=== PATIENT | male | born 1950 | race Caucasian/White ===

== ENCOUNTER 2021-09-14 09:46 | Inpatient (IN) ==
[2021-09-14 11:03] LABS: Basophils % 0.2 %; Hematocrit 34.8 % (37.5-50.1); Immature Granulocytes % 0.5 % (0-4); Lymphocytes # 0.4 K/mcL (0.6-4.6); Lymphocytes % 4.7 %; Mean Corpuscular HGB Conc 31.6 g/dL (31.6-35.5); Mean Corpuscular Volume 85.5 fL (83.0-100.0); Mean Platelet Volume 10.2 fL (9.4-12.4); Monocytes # 0.4 K/mcL (0.0-1.3); Monocytes % 4.5 %; Neutrophils # 7.8 K/mcL (1.6-8.9); Platelet Count 492 K/mcL (140-400); Red Blood Count 4.07 M/mcL (4.19-5.50); Red Cell Distribution Width 15.9 % (11.5-14.5); Segmented Neutrophils % 90.1 %; White Blood Count 8.7 K/mcL (4.3-11.1)
[2021-09-14 11:13] LABS: INR 1.1; Prothrombin Time 12.6 Seconds (9.4-12.1)
[2021-09-14 11:15] LABS: Activated Partial Thrombo Time 31.3 Seconds (26.0-36.0)
[2021-09-14 11:40] LABS: Alanine Aminotransferase 10 Units/L (7-52); Albumin 3.2 g/dL (3.5-5.7); Albumin/Globulin Ratio 0.8 (1.1-2.2); Alkaline Phosphatase 111 Units/L (34-104); Amylase 37 Units/L (29-103); Aspartate Amino Transferase 23 Units/L (13-39); BUN/Creatinine Ratio 31 (6-26); Bilirubin,Direct 0.1 mg/dL (0.0-0.2); Bilirubin,Indirect 0.2 mg/dL (0.0-1.0); Bilirubin,Total 0.3 mg/dL (0.3-1.0); Blood Urea Nitrogen 37 mg/dL (8-23); Calcium 9.1 mg/dL (8.6-10.3); Carbon Dioxide 25 mEq/L (23-29); Chloride 98 mEq/L (98-107); Globulin 4.2 g/dL (2.4-3.5); Glucose 90 mg/dL (70-105); Lipase 16 Units/L (11-82); Osmolality,Calculated 286 (280-300); Potassium 4.7 mEq/L (3.5-5.1); Sodium 134 mEq/L (136-145); Total Protein 7.4 g/dL (6.4-8.9); eGFR For African Americans > 60 (> 60); eGFR For Non-African Americans 59 (> 60)
[2021-09-14] MEDS ORDERED: Isovue-370 500 ML BOTTLE IVP ONE (12:13)
[2021-09-14] MEDS ORDERED: Naloxone 0.4 MG/ML INJ IVP PRN (13:54)
[2021-09-14] MEDS ORDERED: Acetaminophen 325 MG TABLET PO PRN (13:58)
[2021-09-14] MEDS ORDERED: Furosemide 20 MG/2 ML VIAL IVP ONE (15:09)
[2021-09-14] MEDS: Nicotine 21 MG PATCH.TD24 TD SCH (15:40)
[2021-09-14] MEDS: Ondansetron ODT 4 MG TAB.RAPDIS SL PRN (16:00)
[2021-09-14] MEDS: *HR* Heparin 5,000 UNIT/ML VIAL SQ SCH (20:59)
[2021-09-15 03:15] LABS: Basophils % 0.1 %; Hematocrit 31.3 % (37.5-50.1); Immature Granulocytes % 0.3 % (0-4); Lymphocytes # 0.4 K/mcL (0.6-4.6); Lymphocytes % 4.8 %; Mean Corpuscular HGB Conc 31.9 g/dL (31.6-35.5); Mean Corpuscular Hemoglobin 27.3 pg (28.0-33.3); Mean Corpuscular Volume 85.5 fL (83.0-100.0); Mean Platelet Volume 11.3 fL (9.4-12.4); Monocytes # 0.6 K/mcL (0.0-1.3); Monocytes % 6.9 %; Neutrophils # 7.7 K/mcL (1.6-8.9); Platelet Count 452 K/mcL (140-400); Red Blood Count 3.66 M/mcL (4.19-5.50); Red Cell Distribution Width 15.8 % (11.5-14.5); Segmented Neutrophils % 87.9 %; White Blood Count 8.7 K/mcL (4.3-11.1)
[2021-09-15 03:33] LABS: BUN/Creatinine Ratio 33 (6-26); Blood Urea Nitrogen 37 mg/dL (8-23); Calcium 8.8 mg/dL (8.6-10.3); Carbon Dioxide 24 mEq/L (23-29); Chloride 100 mEq/L (98-107); Glucose 54 mg/dL (70-105); Osmolality,Calculated 286 (280-300); Potassium 4.6 mEq/L (3.5-5.1); Sodium 135 mEq/L (136-145); eGFR For African Americans > 60 (> 60); eGFR For Non-African Americans > 60 (> 60)
[2021-09-15] MEDS: Ondansetron ODT 4 MG TAB.RAPDIS SL PRN (03:57)
[2021-09-15] MEDS: *HR* Heparin 5,000 UNIT/ML VIAL SQ SCH ×3 (05:05→21:05)
[2021-09-15] MEDS: Gabapentin 300 MG CAPSULE PO SCH (09:06)
[2021-09-15] MEDS: Spironolactone 25 MG TABLET PO SCH (09:06)
[2021-09-15] MEDS: Cholecalciferol (D-3) 1,000 UNIT (25MCG) TABLET PO SCH (09:06)
[2021-09-15] MEDS: Nicotine 21 MG PATCH.TD24 TD SCH (09:06)
[2021-09-15] MEDS ORDERED: *HR* OxyCODONE Immed Rel 5 MG TABLET PO PRN (14:14)
[2021-09-15 16:04] LABS: Total Protein,Pleural Fluid 4.1 g/dL
[2021-09-15 17:11] LABS: Basophils,Pleural Fluid 0 %; Eosinophils,Pleural Fluid 0 %; RBC,Pleural Fluid 2000 RBC/mcL
[2021-09-15 17:12] LABS: Appearance of Pleural Fl Clear (Clear)
[2021-09-15] MEDS: Sennosides/Docusate Sodium TABLET PO SCH (21:04)
[2021-09-15 23:46] LABS: Amorphous Sediment,Urine Few per hpf (None-Few); Bilirubin,Urine Negative (Negative); Blood,Urine Negative (Negative); Clarity,Urine Clear (Clear); Color,Urine Yellow (Yellow); Glucose,Urine (UA) Normal (Normal); Ketones,Urine Negative (Negative); Leukocyte Esterase,Urine Negative (Negative); Mucus,Urine Few per lpf (None-Few); Nitrite,Urine Negative (Negative); PH,Urine 5.5 pH Units (5.0-8.0); Protein,Urine 30 mg/dL (Neg-Trace); Specific Gravity,Urine > 1.030 (1.010-1.025); Squamous Epithelial Cell,Urine Few per hpf (None-Few); Urobilinogen,Urine Normal (Normal)
[2021-09-16] MEDS: *HR* Heparin 5,000 UNIT/ML VIAL SQ SCH ×3 (05:22→21:11)
[2021-09-16 05:41] LABS: Basophils % 0.1 %; Eosinophils % 0.3 %; Hematocrit 33.6 % (37.5-50.1); Hemoglobin 10.5 g/dL (12.9-16.9); Immature Granulocytes % 0.4 % (0-4); Lymphocytes # 0.5 K/mcL (0.6-4.6); Lymphocytes % 6.7 %; Mean Corpuscular HGB Conc 31.3 g/dL (31.6-35.5); Mean Corpuscular Hemoglobin 26.8 pg (28.0-33.3); Mean Corpuscular Volume 85.7 fL (83.0-100.0); Mean Platelet Volume 11.2 fL (9.4-12.4); Monocytes # 0.8 K/mcL (0.0-1.3); Monocytes % 10.2 %; Neutrophils # 6.2 K/mcL (1.6-8.9); Platelet Count 451 K/mcL (140-400); Red Blood Count 3.92 M/mcL (4.19-5.50); Red Cell Distribution Width 16.1 % (11.5-14.5); Segmented Neutrophils % 82.3 %; White Blood Count 7.6 K/mcL (4.3-11.1)
[2021-09-16 06:16] LABS: BUN/Creatinine Ratio 36 (6-26); Blood Urea Nitrogen 34 mg/dL (8-23); Calcium 8.6 mg/dL (8.6-10.3); Carbon Dioxide 26 mEq/L (23-29); Chloride 101 mEq/L (98-107); Glucose 76 mg/dL (70-105); Osmolality,Calculated 286 (280-300); Potassium 4.4 mEq/L (3.5-5.1); Sodium 135 mEq/L (136-145); eGFR For African Americans > 60 (> 60); eGFR For Non-African Americans > 60 (> 60)
[2021-09-16] MEDS: Nicotine 21 MG PATCH.TD24 TD SCH (10:42)
[2021-09-16] MEDS: Gabapentin 300 MG CAPSULE PO SCH (10:43)
[2021-09-16] MEDS: Cholecalciferol (D-3) 1,000 UNIT (25MCG) TABLET PO SCH (10:43)
[2021-09-16] MEDS: Spironolactone 25 MG TABLET PO SCH (10:43)
[2021-09-16] MEDS: Sennosides/Docusate Sodium TABLET PO SCH ×2 (10:43→21:16)
[2021-09-16] MEDS: 0.9 % Sodium Chloride 1,000 ML IVC SCH (15:20)
[2021-09-17] MEDS: 0.9 % Sodium Chloride 1,000 ML IVC SCH (04:36)
[2021-09-17] MEDS: *HR* Heparin 5,000 UNIT/ML VIAL SQ SCH ×4 (04:37→20:44)
[2021-09-17] MEDS: Nicotine 21 MG PATCH.TD24 TD SCH (08:24)
[2021-09-17] MEDS: Sennosides/Docusate Sodium TABLET PO SCH ×2 (08:25→20:43)
[2021-09-17] MEDS: Gabapentin 300 MG CAPSULE PO SCH (08:25)
[2021-09-17] MEDS: Spironolactone 25 MG TABLET PO SCH (08:25)
[2021-09-17 08:51] LABS: BUN/Creatinine Ratio 40 (6-26); Blood Urea Nitrogen 36 mg/dL (8-23); Calcium 8.4 mg/dL (8.6-10.3); Carbon Dioxide 19 mEq/L (23-29); Chloride 104 mEq/L (98-107); Glucose 48 mg/dL (70-105); Osmolality,Calculated 292 (280-300); Phosphorous 4.1 mg/dL (2.7-4.5); Potassium 4.4 mEq/L (3.5-5.1); Sodium 138 mEq/L (136-145); eGFR For African Americans > 60 (> 60); eGFR For Non-African Americans > 60 (> 60)
[2021-09-17] MEDS: Cholecalciferol (D-3) 1,000 UNIT (25MCG) TABLET PO SCH (10:07)
[2021-09-17] MEDS: D5% in 0.9% NACL 1,000 ML IVC SCH (14:06)
[2021-09-17] MEDS: Ondansetron ODT 4 MG TAB.RAPDIS SL PRN (17:51)
[2021-09-18] MEDS: D5% in 0.9% NACL 1,000 ML IVC SCH ×2 (00:14→15:03)
[2021-09-18] MEDS: *HR* Heparin 5,000 UNIT/ML VIAL SQ SCH ×3 (05:52→21:04)
[2021-09-18] MEDS: Spironolactone 25 MG TABLET PO SCH (10:11)
[2021-09-18] MEDS: Cholecalciferol (D-3) 1,000 UNIT (25MCG) TABLET PO SCH (10:11)
[2021-09-18] MEDS: Gabapentin 300 MG CAPSULE PO SCH (10:11)
[2021-09-18] MEDS: Sennosides/Docusate Sodium TABLET PO SCH ×2 (10:11→21:04)
[2021-09-18] MEDS: Nicotine 21 MG PATCH.TD24 TD SCH (10:11)
[2021-09-18] MEDS: Renal Vitamin 1 CAP CAPSULE PO SCH (12:48)
[2021-09-18 12:51] LABS: Fluid Source for Triglycerides PLEURAL FLUID
[2021-09-18 15:06] LABS: Triglycerides,Body Fluid 31 mg/dL
[2021-09-19] MEDS: D5% in 0.9% NACL 1,000 ML IVC SCH ×2 (03:12→16:18)
[2021-09-19] MEDS: *HR* Heparin 5,000 UNIT/ML VIAL SQ SCH ×3 (05:13→21:07)
[2021-09-19] MEDS: Gabapentin 300 MG CAPSULE PO SCH (07:48)
[2021-09-19] MEDS: Renal Vitamin 1 CAP CAPSULE PO SCH (07:48)
[2021-09-19] MEDS: Nicotine 21 MG PATCH.TD24 TD SCH (07:48)
[2021-09-19] MEDS: Sennosides/Docusate Sodium TABLET PO SCH ×2 (07:48→21:07)
[2021-09-19] MEDS: Cholecalciferol (D-3) 1,000 UNIT (25MCG) TABLET PO SCH (07:48)
[2021-09-19] MEDS: Spironolactone 25 MG TABLET PO SCH (07:48)
[2021-09-19] MEDS ORDERED: 0.9 % Sodium Chloride 1,000 ML IVC SCH (15:30)
[2021-09-20] MEDS: *HR* Heparin 5,000 UNIT/ML VIAL SQ SCH ×3 (05:15→21:15)
[2021-09-20] MEDS: Ondansetron ODT 4 MG TAB.RAPDIS SL PRN (05:20)
[2021-09-20] MEDS: D5% in 0.9% NACL 1,000 ML IVC SCH ×2 (05:56→18:13)
[2021-09-20] MEDS: Nicotine 21 MG PATCH.TD24 TD SCH (09:18)
[2021-09-20] MEDS: Renal Vitamin 1 CAP CAPSULE PO SCH (09:18)
[2021-09-20] MEDS: Gabapentin 300 MG CAPSULE PO SCH (09:18)
[2021-09-20] MEDS: Cholecalciferol (D-3) 1,000 UNIT (25MCG) TABLET PO SCH (09:18)
[2021-09-20] MEDS: Spironolactone 25 MG TABLET PO SCH (09:18)
[2021-09-20] MEDS: Sennosides/Docusate Sodium TABLET PO SCH ×2 (09:18→21:14)
[2021-09-21] MEDS: *HR* Heparin 5,000 UNIT/ML VIAL SQ SCH ×2 (05:24→14:44)
[2021-09-21] MEDS: Cholecalciferol (D-3) 1,000 UNIT (25MCG) TABLET PO SCH (08:37)
[2021-09-21] MEDS: Nicotine 21 MG PATCH.TD24 TD SCH (08:37)
[2021-09-21] MEDS: Spironolactone 25 MG TABLET PO SCH (08:37)
[2021-09-21] MEDS: Gabapentin 300 MG CAPSULE PO SCH (08:37)
[2021-09-21] MEDS: Sennosides/Docusate Sodium TABLET PO SCH (08:37)
[2021-09-21] MEDS: Renal Vitamin 1 CAP CAPSULE PO SCH (08:37)
[2021-09-21] MEDS: D5% in 0.9% NACL 1,000 ML IVC SCH (08:50)
[2021-09-21] MEDS ORDERED: D10% in Water 500 ML IVC PRN (12:31)
[2021-09-21] MEDS ORDERED: D5% in 0.45% NACL 1,000 ML IVC SCH (13:45)
[2021-09-21 14:10] LABS: Alanine Aminotransferase 7 Units/L (7-52); Albumin 2.8 g/dL (3.5-5.7); Albumin/Globulin Ratio 0.8 (1.1-2.2); Alkaline Phosphatase 93 Units/L (34-104); Aspartate Amino Transferase 26 Units/L (13-39); BUN/Creatinine Ratio 40 (6-26); Bilirubin,Total 0.3 mg/dL (0.3-1.0); Blood Urea Nitrogen 29 mg/dL (8-23); Calcium 8.6 mg/dL (8.6-10.3); Carbon Dioxide 24 mEq/L (23-29); Chloride 110 mEq/L (98-107); Globulin 3.5 g/dL (2.4-3.5); Glucose 102 mg/dL (70-105); Osmolality,Calculated 302 (280-300); Phosphorous 3.4 mg/dL (2.7-4.5); Potassium 3.9 mEq/L (3.5-5.1); Sodium 143 mEq/L (136-145); Total Protein 6.3 g/dL (6.4-8.9); eGFR For African Americans > 60 (> 60); eGFR For Non-African Americans > 60 (> 60)
[2021-09-21 16:33] VITALS: BP 149/99; PULSE 67; TEMP 97.9; O2SAT 91
[2021-09-21] MEDS ORDERED: Clinimix E 5%-15% SOLUTION 2,000 ML with MVI, adult with vitamin K 10 ML IVC SCH (17:00)
== END 2021-09-21 19:12 | disposition short-term general hospital (02) | DRG 374 ==
LOC: 3ANU 09:46 → EMEROOARM 09:46 → SUATTDRO 13:14 → 3ANU 13:40
PROVIDERS: ADMIT Internal Medicine; ATTEND Internal Medicine